=== PATIENT | female | born 1985 | race Caucasian/White ===

== ENCOUNTER → 2021-12-21 15:21 | Outpatient (CLI) | payer OTHER, SELFPAY ==
--- NOTE | ~2021-12-21 | US_ITS ---
EXAMINATION: US OB /maternal detail DATE: 12/21/2021 16:07 INDICATION: Second trimester anatomic survey TECHNIQUE: Real-time ultrasound of the pelvis was performed. COMPARISON: None. FINDINGS: There is a single living fetus in vertex presentation. The placenta is anterior and 6.2 cm from the i nternal cervical os. The cervical length is 4.9 cm. heart rate is 137 beats per minute (bpm). cardiac activity and movement are noted. The amniotic fluid index is subjectively normal. The following anatomy was identified as normal: 4 chamber heart 3 vessel cord cord insertion kidneys urinary bladder stomach spine diaphragm ventricles cisterna magna cerebellum The following biometric data were obtained: Biparietal diameter (BPD): 3.8 cm; head circumference (HC): 15.0 cm; abdominal circumference (AC): 13 .0 cm; femur length (FL): 2.8 cm. These measurements are concordant. Estimated weight is 239 g +/- 35 g, which correlates with the 13th percentile when 05/16/2022 is used as estimated date of delivery. As single measurements, these parameters are each equal to the following estimated gestational ages w ith ranges of +/- 2 standard deviations: BPD: 17 weeks 5 days ( 16 weeks 3 days - 18 weeks 6 days). HC: 18 weeks 1 days ( 16 weeks 4 days - 19 weeks 4 days). AC: 18 weeks 4 days ( 16 weeks 3 days - 20 weeks 4 days). FL: 18 weeks 3 days ( 16 weeks 4 days - 20 weeks 2 days). estimated gestational age based solely on measurements from this exam is 18 weeks 2 days +/- 1 weeks 2 days. IMPRESSION: 1. Single living fetus in vertex presentation. 2. Estimated weight is 239 g +/- 35 g, which correlates with the 13th percentile when 05/16/2022 is used as estimated date of delivery. Reviewed, dictated and finalized at location B. IMPRESSION: 1. Single living fetus in vertex presentation. 2. Estimated weight is 239 g +/- 35 g, which correlates with the 13th per centile when 05/16/2022 is used as estimated date of delivery.
== END ==
PROVIDERS: PCP Obstetrics & Gynecology; Visit Provider Obstetrics & Gynecology
DX: Z36.89 Encounter for other specified antenatal screening (principal)
CPT/HCPCS: 76805

== ENCOUNTER 2024-04-17 09:19 | Outpatient (CLI) | payer OTHER, SELFPAY ==
--- NOTE | ~2024-04-17 | US_ITS ---
EXAMINATION: US OB /maternal detail DATE: 04/17/2024 10:08 INDICATION: anatomic survey. TECHNIQUE: Real-time ultrasound of the pelvis was performed. COMPARISON: None. FINDINGS: There is a single living fetus in variable presentation. The placenta is posterior. There is a 6.2 x 3.8 cm hypoechoic mass covering the internal cervical os that abuts the placenta. The cervical lengt h is 4.4 cm which is normal. heart rate is 146 beats per minute (bpm). The amniotic fluid volum e is subjectively normal. The following biometric data were obtained: Biparietal diameter (BPD): 4.4 cm; head circumference (HC): 16.4 cm; abdominal circumference (AC): 13 .5 cm; femur length (FL): 2.8 cm. These measurements are concordant. Estimated weight is 259 g +/- 39 g, which correlates with the 35th percentile when 09/11/24 is u sed as estimated date of delivery. As single measurements, these parameters are each equal to the following estimated gestational ages: BPD: 19 weeks 2 days. HC: 19 weeks 1 days. AC: 19 weeks 0 days. FL: 18 weeks 4 days. estimated gestational age based solely on measurements from this exam is 19 weeks 0 days +/- 1 weeks 2 days. The cerebral ventricles, cerebellum, cisterna magna, nuchal fold, and spine are normal. The heart is normal. The diaphragm, stomach, kidneys, and bladder are normal. There are two umbilical arteries to yield a 3-vessel cord. The cord insertion is normal. IMPRESSION: 1. Single living fetus in variable presentation. 2. Estimated weight is 259 g +/- 39 g, which correlates with the 35th percentile when 09/11/24 is used as estimated date of delivery. 3. Mass covering the internal cervical os and abutting the placenta, likely a subchorionic hematoma. Placenta previa cannot be excluded. Follow-up ultrasound is recommended to exclude placenta previa. 4. Normal anatomic survey. Reviewed, dictated and finalized at location A. TOGRAPHER IMPRESSION: 1. Single living fetus in variable presentation. 2. Estimated weight is 259 g +/- 39 g, which correlates with the 35th pe rcentile when 09/11/24 is used as estimated date of delivery. 3. Mass covering the internal cervical os and abutting the placenta, likely a s ubchorionic hematoma. Placenta previa cannot be excluded. Follow-up ultrasound is recommended to exclude placenta previa. 4. Normal anatomic survey.
== END 2024-04-17 09:20 | disposition home or self-care (01) ==
LOC: MICIMG 09:21
PROVIDERS: PCP Obstetrics & Gynecology; Visit Provider Obstetrics & Gynecology
DX: O09.892 Supervision of other high risk pregnancies, second trimester (principal); O46.91 Antepartum hemorrhage, unspecified, first trimester
CPT/HCPCS: 76805

== ENCOUNTER 2024-05-16 14:05 | Outpatient (CLI) | payer OTHER, SELFPAY ==
--- NOTE | ~2024-05-16 | US_ITS ---
EXAMINATION: US OB follow up DATE: 05/16/2024 14:29 INDICATION: Malformation of placenta, unspecified. TECHNIQUE: Real-time ultrasound of the pelvis was performed. COMPARISON: Ultrasound 04/17/2024 FINDINGS: There is a single living fetus in vertex presentation. The placenta is posterior, 1.3 cm from the ce rvix. There is a 6.9 x 1.3 x 2.1 cm hypoechoic subchorionic mass anteriorly. The cervical length is 5 .3 cm on transabdominal images, which is normal. heart rate is 150 beats per minute (bpm). The amniotic fluid volume is subjectively normal. IMPRESSION: 1. Single living fetus in vertex presentation. 2. Low-lying placenta. 3. 6.1 cm hypoechoic subchorionic mass anteriorly again seen, likely a hematoma. Reviewed, dictated and finalized at location A. 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 Single living fetus in vertex presentation. 2. Low-lying placenta. 3. 6.1 cm hypoechoic subchorionic mass anteriorly again seen, likely a hematoma .
== END 2024-05-16 14:06 | disposition home or self-care (01) ==
LOC: MICIMG 14:06
PROVIDERS: PCP Obstetrics & Gynecology; Visit Provider Obstetrics & Gynecology
DX: O44.40 Low lying placenta NOS or without hemorrhage, unspecified trimester (principal); Z3A.00 Weeks of gestation of pregnancy not specified
CPT/HCPCS: 76816